=== PATIENT | female | born 1965 | race Caucasian/White ===

== ENCOUNTER 2016-11-05 16:05 | Emergency (ER) | payer OTHER ==
[2016-11-05 16:47] VITALS: BP 113/75; PULSE 84; RESP 16; TEMP 98.2; O2SAT 95
--- NOTE | 2016-11-05 17:19 | UCPHY ---
H & P Time Seen by Provider: 11/05/16 16:53 Patient Type: New HPI/ROS: HPI Sore throat, nasal congestion. 51-year-old female by private vehicle. She reports having a scratchy, sore throat with nasal congestion for the last 2-3 days. She reports her son tested positive for strep throat and she was concerned about strep throat. She has not had any voice changes. No stridor. No difficulty swallowing. No high fever. No other complaint. ROS: Constitutional: No fever, no chills. No weakness. Eyes: No discharge. No changes in vision. ENT: As above. Respiratory: No cough. No shortness of breath. Cardiac: No chest pain, no palpitations. Gastrointestinal: No abdominal pain, no vomiting, no diarrhea. Genitourinary: No hematuria. No dysuria or increased frequency with urination. Musculoskeletal: No back pain. No neck pain. No myalgias or arthralgias. Skin: No rashes. Neurological: No headache. No focal weakness or altered sensation. Past medical history: Hysterectomy, , cholecystectomy, Social history: Here by herself currently. Nonsmoker. Physical Exam: General Appearance: Alert, no distress. This patient is responding to questions appropriately and in full sentences. This patient appears well- hydrated and well-nourished. Eyes: Pupils equal and round no pallor or injection. No lid edema, erythema or injection. ENT, Mouth: Mucous membranes are moist. The pharyngeal tissues are unremarkable. No edema or swelling. No asymmetry suggestive of abscess. No erythema or exudates. Respiratory: There are no retractions, lungs are clear to auscultation with good air movement bilaterally. Cardiovascular: Regular rate and rhythm. No murmur. Neurological: Motor sensory function is grossly intact. Cranial nerves are normal. Gait is normal. Skin: Warm and dry, no rashes. Musculoskeletal: Neck is supple and nontender. No cervical, submental, submandibular lymphadenopathy. Extremities are symmetrical. All joints range without pain or impingement. Psychiatric: No agitation. No depression. Database: Rapid strep-negative. EKG: Imaging: Procedures: Emergency department course: 5:20 p.m., discussed the results of her rapid strep assays a. I explained that she likely had a viral upper respiratory infection. I recommended high-dose ibuprofen for the next 2-3 days. She feels comfortable with this plan. Her vital signs reviewed and are normal. Follow-up and return to Urgent Care precautions reviewed with her. All of her questions were answered. She was discharged from the emergency department in good condition. Differential Diagnosis: The differential diagnosis on this patient includes but is not limited to upper respiratory infection, viral pharyngitis. Streptococcal pharyngitis, serious bacterial infection unlikely. This represents a partial list of diagnoses considered. These considerations are based on history, physical exam, past history, reassessment and diagnostic testing. Smoking Status: Never smoked Constitutional: Initial Vital Signs Temperature (C) 36.8 C 11/05/16 16:40 Heart Rate 84 11/05/16 16:40 Respiratory Rate 16 11/05/16 16:40 Blood Pressure 113/75 11/05/16 16:40 O2 Sat (%) 95 11/05/16 16:40 O2 Delivery Mode Room Air Allergies/Adverse Reactions: erythromycin base Allergy (Intermediate, Verified 11/05/16 16:38) Hives Home Medications: Medication Instructions Recorded Albuterol Hfa Anes Only 11/05/16 Crestor 11/05/16 Valacyclovir 11/05/16 Zoloft 50mg (*) 11/05/16 Medical Decision Making - Data Points Laboratory Results: 11/05/16 11/05/16 Unknown 16:52 Group A Strep Screen NEGATIVE (NEGATIVE) Group A Strep DNA Pending Departure - Departure Disposition: Home, Routine, Self-Care Clinical Impression: Upper respiratory infection, Viral pharyngitis Condition: Good Instructions: Upper Respiratory Infection (ED), Pharyngitis (ED) Additional Instructions: Read and follow provided instructions. Follow-up with your primary care physician in 1-2 days for re-evaluation as needed. Ibuprofen dosin mg every 6 hours with meals for the next 3 days only. Return to the emergency department for worsening sore throat, difficulty swallowing, high fever, voice changes or other serious concerns. Referrals: NONE *PRIMARY CARE P,. [Primary Care Provider] - As per Instructions - PQRS PQRS Measurement: Not applicable.
== END 2016-11-05 17:31 | disposition home or self-care (01) ==
LOC: CED 16:05
DX: J02.9 Acute pharyngitis, unspecified (principal); J06.9 Acute upper respiratory infection, unspecified
CPT/HCPCS: 87880-PO; G0463-PO